=== PATIENT | female | born 1940 | race Caucasian/White ===

== ENCOUNTER 2017-03-24 10:33 | Observation (INO) ==
[2017-03-24] MEDS ORDERED: Aspirin 81 MG TAB.CHEW PO ONE (10:44)
--- NOTE | 2017-03-24 10:49 | Emergency Department Note ---
Disposition Clinical Impression: Chest pain Qualifiers: Chest pain type: precordial pain Qualified Code(s): R07.2 - Precordial pain Disposition: Admitted As Inpatient Chest Pain HPI - General Stated Complaint: CP Time Seen by Provider: 03/24/17 10:44 Source: patient Mode of arrival: ambulatory Limitations: no limitations Vital Signs Reviewed: Yes Nursing Notes Reviewed: Yes - History of Present Illness HPI Narrative: 76-year-old who presents merge department complaining of some chest pain ( anterior left shoulder) and bandlike pain in her left arm. Patient has no recent history of cardiac workup and has no history of heart attack. Pt complaint: chest pain Onset (ago): Just [employer] Duration: intermittent Onset: during rest Pain Location: substernal, left chest Severity: moderate Quality: tightness, aching Improves with: nothing Worsens with: nothing Associated symptoms: Denies: diaphoresis, dyspnea Treatments prior to arrival chest pain: none - Related Data Home Medications Medication Instructions Recorded Confirmed Atorvastatin [Lipitor] 10 mg PO HS 03/24/17 03/24/17 Calcium Carbonate/Vitamin D3 1 tab PO DAILY 03/24/17 03/24/17 [Calcium 500 + Vit D 200 Caplet] Cranberry 500 mg PO DAILY 03/24/17 03/24/17 FLUoxetine HCl [PROzac] 20 mg PO DAILY 03/24/17 03/24/17 HYDROcodone/Acet 5/325 mg [[place] 1 tab PO Q6H PRN 03/24/17 03/24/17 5-325 mg] L. Acidophilus/Pectin, [place] 1 cap PO DAILY 03/24/17 03/24/17 [Acidophilus Probiotic Capsule] Lansoprazole [Prevacid] 30 mg PO DAILY 03/24/17 03/24/17 Loratadine [Allergy Relief] 10 mg PO DAILY 03/24/17 03/24/17 Methylcellulose [Citrucel] 1,000 mg PO 6XD 03/24/17 03/24/17 Vitamin E 100 unit PO DAILY 03/24/17 03/24/17 Allergies Allergy/AdvReac Type Severity Reaction Status Date / Time Penicillins Allergy Rash Verified 03/24/17 10:53 azithromycin AdvReac Nausea Verified 03/24/17 10:53 All systems ED: reviewed and negative except as stated. Constitutional: Denies: fever, chills, weakness, weight change Eyes: Denies: eye pain, eye discharge, vision change ENT ED: Denies: ear pain, throat pain, dental pain, hearing loss, epistaxis, congestion, dysphagia Cardiovascular: Reports: chest pain. Denies: palpitations, dyspnea on exertion , edema, syncope Respiratory: Denies: cough, dyspnea, wheezes, hemoptysis, stridor Gastrointestinal: Denies: abdominal pain, nausea, vomiting, diarrhea, constipation, hematemesis, melena, hematochezia Genitourinary: Denies: dysuria, frequency, hematuria, discharge Musculoskeletal: Denies: back pain, neck pain, arthralgia, myalgia Integumentary: Denies: rash, abrasion, lesions Neurological: Denies: headache, weakness, numbness, paresthesias, confusion, abnormal gait, vertigo Psychiatric: Denies: anxiety, depression, suicidal thoughts, homicidal thoughts , auditory hallucinations, visual hallucinations Endocrine: Denies: fatigue Hematological/Lymphatic: Denies: easy bleeding, easy bruising Allergic/Immunologic: Denies: facial swelling, urticaria Physical Exam - General Limitations: no limitations General appearance: alert, in no apparent distress - Head Head exam: atraumatic, normocephalic, normal inspection - Eye Eye exam: Present: normal appearance, PERRL, EOMI - ENT ENT exam: normal exam, normal oropharynx, mucous membranes moist - Neck Neck exam: Present: normal inspection, full ROM, trachea midline - Chest Chest inspection: Present: normal inspection, symmetric chest wall rise - Respiratory Respiratory exam: Present: normal lung sounds bilaterally - Cardiovascular Cardiovascular exam: Present: regular rate, normal rhythm, normal heart sounds - Abdominal Exam Abdominal exam: Present: soft, Non-Tender. Absent: tenderness, distention, guarding, rebound, rigidity - Extremities Exam Extremities exam: Present: normal inspection, full ROM. Absent: tenderness, pedal edema - Expanded Lower Extremity Exam Hip/Pelvis exam: Present: normal inspection, full ROM Neurovascular/Tendon exam: Absent: motor deficit, sensory deficit, tendon deficit Gait: not tested/not observed - Back Exam Back exam: Present: normal inspection, full ROM. Absent: tenderness - Neurological Exam Neurological exam: Present: alert, oriented X3 - Psychiatric Psychiatric exam: Present: normal affect, normal mood - Skin Skin exam: Present: warm, dry, intact, normal color Course - Reevaluation(s) Reevaluation #1: Currently pain free Time: 12:03 Reevaluation #2: 76-year-old without a significant cardiac history comes in complaining of chest pain. Time: 12:03 Vital Signs Temperature 97.6 F 03/24/17 10:47 Pulse Rate 81 03/24/17 10:47 Respiratory Rate 16 03/24/17 10:47 Blood Pressure 139/83 03/24/17 10:47 O2 Sat by Pulse Oximetry 97 03/24/17 10:47 Temperature 97.9 F 03/24/17 14:08 Pulse Rate 68 03/24/17 14:08 Respiratory Rate 20 03/24/17 14:08 Blood Pressure 136/73 03/24/17 14:08 O2 Sat by Pulse Oximetry 99 03/24/17 14:08 Oxygen Delivery Oxygen Delivery Room Air Chest Pain - Lab Data Lab results reviewed: Yes I reviewed the patient's lab results. Result diagrams: 03/24/17 10:55 03/24/17 10:55 Lab Results 03/24/17 03/24/17 03/24/17 Range/Units 10:55 10:55 10:55 WBC 4.1 L (4.3-11.1) K/mcL RBC 4.68 (3.82-4.97) M/mcL Hgb 13.4 (11.5-15.4) g/dL Hct 41.5 (35.3-44.9) % MCV 88.7 (83.0-100.0) fL MCH 28.6 (28.0-33.3) pg MCHC 32.3 (31.6-35.5) g/dL RDW 13.7 (11.5-14.5) % Plt Count 337 (140-400) K/mcL MPV 8.7 L (9.4-12.4) fL Immature Gran % 0.5 (0-4) % Seg Neutrophils % 61.8 % Lymphocytes % 23.8 % Monocytes % 9.5 % Eosinophils % 2.9 % Basophils % 1.5 % Neutrophils # 2.5 (1.6-8.9) K/mcL Lymphocytes # 1.0 (0.6-4.6) K/mcL Monocytes # 0.4 (0.0-1.3) K/mcL Eosinophils # 0.1 (0.0-0.6) K/mcL Basophils # 0.1 (0.0-0.2) K/mcL PT 10.5 (9.4-12.1) Seconds INR 1.0 APTT 30.7 (26.0-36.0) Seconds Sodium (136-145) mEq/L Potassium (3.5-4.5) mEq/L Chloride (98-109) mEq/L Carbon Dioxide (19-29) mEq/L BUN (7-20) mg/dL Creatinine (0.57-1.11) mg/dL Est GFR ( Amer) (> 60) Est GFR (Non-Af Amer) (> 60) BUN/Creatinine Ratio (6-26) Glucose (70-99) mg/dL Calculated Osmolality (280-300) Calcium (8.6-10.8) mg/dL Troponin I (0-0.03) ng/mL B-Natriuretic Peptide 27 (0-100) pg/mL 03/24/17 03/24/17 Range/Units 10:55 10:55 WBC (4.3-11.1) K/mcL RBC (3.82-4.97) M/mcL Hgb (11.5-15.4) g/dL Hct (35.3-44.9) % MCV (83.0-100.0) fL MCH (28.0-33.3) pg MCHC (31.6-35.5) g/dL RDW (11.5-14.5) % Plt Count (140-400) K/mcL MPV (9.4-12.4) fL Immature Gran % (0-4) % Seg Neutrophils % % Lymphocytes % % Monocytes % % Eosinophils % % Basophils % % Neutrophils # (1.6-8.9) K/mcL Lymphocytes # (0.6-4.6) K/mcL Monocytes # (0.0-1.3) K/mcL Eosinophils # (0.0-0.6) K/mcL Basophils # (0.0-0.2) K/mcL PT (9.4-12.1) Seconds INR APTT (26.0-36.0) Seconds Sodium 138 (136-145) mEq/L Potassium 4.1 (3.5-4.5) mEq/L Chloride 105 (98-109) mEq/L Carbon Dioxide 24 (19-29) mEq/L BUN 15 (7-20) mg/dL Creatinine 0.75 (0.57-1.11) mg/dL Est GFR ( Amer) > 60 (> 60) Est GFR (Non-Af Amer) > 60 (> 60) BUN/Creatinine Ratio 20 (6-26) Glucose 96 (70-99) mg/dL Calculated Osmolality 287 (280-300) Calcium 9.4 (8.6-10.8) mg/dL Troponin I 0.00 (0-0.03) ng/mL B-Natriuretic Peptide (0-100) pg/mL - Radiology Data Radiology results reviewed: Yes I reviewed the patient's radiology results. Chest X-Ray 03/24/17 10:45 IMPRESSION: No evidence for acute cardiopulmonary process. Retrocardiac opacity felt to correlate with hiatal hernia noted on prior remote CT abdomen 09/10/2006. D/ / 03/24/2017 11:02:27 Hesham Flores MD / [facility] Interpreting Provider: Hesham Flores MD - EKG Data EKG attestation: Yes I reviewed and interpreted this EKG. EKG shows normal: sinus rhythm Rate: normal Rhythm: NSR Interpretation: nonspecific ST-T wave changes
[2017-03-24 11:06] LABS: Basophils # 0.1 K/mcL (0.0-0.2); Basophils % 1.5 %; Eosinophils # 0.1 K/mcL (0.0-0.6); Eosinophils % 2.9 %; Hematocrit 41.5 % (35.3-44.9); Hemoglobin 13.4 g/dL (11.5-15.4); Immature Granulocytes % 0.5 % (0-4); Lymphocytes % 23.8 %; Mean Corpuscular HGB Conc 32.3 g/dL (31.6-35.5); Mean Corpuscular Hemoglobin 28.6 pg (28.0-33.3); Mean Corpuscular Volume 88.7 fL (83.0-100.0); Mean Platelet Volume 8.7 fL (9.4-12.4); Monocytes # 0.4 K/mcL (0.0-1.3); Monocytes % 9.5 %; Neutrophils # 2.5 K/mcL (1.6-8.9); Platelet Count 337 K/mcL (140-400); Red Blood Count 4.68 M/mcL (3.82-4.97); Red Cell Distribution Width 13.7 % (11.5-14.5); Segmented Neutrophils % 61.8 %
[2017-03-24 11:15] LABS: Prothrombin Time 10.5 Seconds (9.4-12.1)
[2017-03-24 11:18] LABS: Activated Partial Thrombo Time 30.7 Seconds (26.0-36.0); BUN/Creatinine Ratio 20 (6-26); Blood Urea Nitrogen 15 mg/dL (7-20); Calcium 9.4 mg/dL (8.6-10.8); Carbon Dioxide 24 mEq/L (19-29); Chloride 105 mEq/L (98-109); Glucose 96 mg/dL (70-99); Osmolality,Calculated 287 (280-300); Potassium 4.1 mEq/L (3.5-4.5); Sodium 138 mEq/L (136-145); eGFR For African Americans > 60 (> 60); eGFR For Non-African Americans > 60 (> 60)
[2017-03-24] MEDS ORDERED: Naloxone 0.4 MG/ML INJ IVP PRN (12:30)
[2017-03-24] MEDS ORDERED: *HR* Morphine 2 MG/ML SYRINGE IVP PRN (12:30)
[2017-03-24] MEDS ORDERED: Ondansetron 4 MG/2 ML VIAL IVP PRN (12:30)
[2017-03-24] MEDS ORDERED: Acetaminophen 325 MG TABLET PO PRN (12:30)
--- NOTE | 2017-03-24 12:37 | Internal Med History&Physical ---
Date of Encounter: 03/24/17 Time of Encounter: 12:35 Assessment and Plan (1) Chest pain Current visit: Yes Status: Acute Unclear etiology Continue aspirin, Lipitor, check lipid panel in the morning, follow troponins, continue telemetry Order a stress test and echocardiogram, consider urology consult if abnormal Patient will be admitted for observation. Full code. Time spent on this admission 40 minutes Omeprazole for GI prophylaxis and Lovenox for DVT prophylaxis Qualifiers: Chest pain type: precordial pain Qualified Code(s): R07.2 - Precordial pain (2) Left arm numbness Current visit: Yes Status: Acute Minimal weakness in the left upper shoulder/arm Order a CT scan of the head and may order an MRI of the brain, consider further workup in neurology consult if positive findings (3) Hyperlipidemia Current visit: Yes Status: Acute Start Lipitor Qualifiers: Hyperlipidemia type: pure hypercholesterolemia Qualified Code(s): E78.00 - Pure hypercholesterolemia, unspecified; E78.0 - Pure hypercholesterolemia (4) GERD (gastroesophageal reflux disease) Current visit: Yes Status: Acute Continue omeprazole Needs to follow up as an outpatient Qualifiers: Esophagitis presence: without esophagitis Qualified Code(s): K21.9 - Gastro -esophageal reflux disease without esophagitis (5) Leukopenia Current visit: Yes Status: Acute Likely chronic Qualifiers: Leukopenia type: unspecified Qualified Code(s): D72.819 - Decreased white blood cell count, unspecified Internal Medicine - H&P: HPI Chief complaint: Chest pain Admitted From: Emergency Dept History of present illness: Ms. West is a 76 year old female with a past medical history of gastritis, depression, hyperlipidemia. Comes emergency room complaining of 2 weeks of progressive left arm discomfort, she has been having numbness and a sensation of pins and needles, mild weakness. Yesterday she started complaining of chest pain that radiated to the left side of her neck, dull, pressure-like that started at 9 AM again today 4 out of 10 in intensity that has not improved. Not related to movement. Chest x-ray shows no acute abnormalities and just a retrocardiac opacity compatible with history of hiatal hernia. White blood cell count is 4.1, no fevers or signs of infections. EKG shows ST segment flattening especially inferior leads and lateral leads with no acute changes. Past Med Surg Social Fam HX - Past Medical History Medical history: hyperlipidemia, other (Osteoarthritis, GERD, gastritis, depression) Psychiatric history: no psych history - Past Surgical History Surgical History: other (4 hip replacements, hysterectomy, appendectomy, eye surgeries) - Social History Smoking Status: Never smoker Smokeless Tobacco Status: No Alcohol use: none Drug use: none - Additional Family History Additional family history: Father with colon cancer and mother with emphysema Internal Medicine - H&P: Meds Allergies Penicillins Allergy (Verified 03/24/17 10:53) Rash azithromycin Adverse Reaction (Verified 03/24/17 10:53) Nausea All Systems PM: A 10-system review of systems was performed and is negative for pertinent findings except as documented above in the HPI. Review of systems: Continues to have chest pain. Other systems out of the 10 reviewed were negative. - Constitutional Vitals: Temp Pulse Resp BP Pulse Ox 97.6 F 73 18 132/78 96 03/24/17 10:47 03/24/17 11:48 03/24/17 11:48 03/24/17 11:48 03/24/17 11:48 General appearance: Present: A&O X 3 - Head Head exam: Present: atraumatic, normocephalic - Eye Eye exam: Present: PERRL, conjuntiva pink, sclera anicteric Pupils: Present: PERRL - Neck Neck exam general surgery: Present: supple, trachea midline. Absent: lymphadenopathy - Respiratory Respiratory exam: Present: CTAB. Absent: accessory muscle use, rales, rhonchi, wheezes - Cardiovascular Cardiovascular exam: Present: RRR, +S1, +S2. Absent: diastolic murmur, gallop, rubs, systolic murmur - GI/Abdominal GI/Abdominal exam: Present: normal bowel sounds, soft, no peritoneal signs. Absent: distended, tenderness - Extremities Exam Extremities exam: Present: warm, radial pulses palpable and symetrical. Absent : calf tenderness, cyanotic, pedal edema - Neurological Exam Neurological exam: Present: CN II-XII intact, oriented X3, no focal deficits. Absent: pronater drift, facial droop, speech deficit - Skin Skin exam: Present: dry, intact Internal Med - H&P Results - Labs CBC & Chem 7: 03/24/17 10:55 03/24/17 10:55 Labs: Short CBC 03/24/17 Range/Units 10:55 WBC 4.1 L (4.3-11.1) K/mcL Hgb 13.4 (11.5-15.4) g/dL Hct 41.5 (35.3-44.9) % Plt Count 337 (140-400) K/mcL Neutrophils # 2.5 (1.6-8.9) K/mcL BMP 03/24/17 10:55 Sodium 138 Potassium 4.1 Chloride 105 Carbon Dioxide 24 BUN 15 Creatinine 0.75 Glucose 96 Calcium 9.4 Cardiac Enzymes 03/24/17 Range/Units 10:55 Troponin I 0.00 (0-0.03) ng/mL - Impressions ITS Impressions Chest X-Ray 03/24/17 10:45 IMPRESSION: No evidence for acute cardiopulmonary process. Retrocardiac opacity felt to correlate with hiatal hernia noted on prior remote CT abdomen 09/10/2006. D/ / 03/24/2017 11:02:27 Hesham Flores MD [facility] Interpreting Provider: Hesham Flores MD
[2017-03-24] MEDS: 0.9 % Sodium Chloride 1,000 ML IVC SCH (14:21)
--- NOTE | 2017-03-24 17:36 | Electrocardiograph Report ---
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
[2017-03-25] MEDS: 0.9 % Sodium Chloride 1,000 ML IVC SCH (05:36)
[2017-03-25 05:49] LABS: BUN/Creatinine Ratio 20 (6-26); Blood Urea Nitrogen 17 mg/dL (7-20); Calcium 9.2 mg/dL (8.6-10.8); Carbon Dioxide 25 mEq/L (19-29); Chloride 107 mEq/L (98-109); Chol/HDL Ratio 3.2 (0-4.9); Cholesterol 221 mg/dL (< 200); Glucose 90 mg/dL (70-99); HDL Cholesterol 69 mg/dL (40-59); LDL Cholesterol,Calculated 125 mg/dL (0-99); Osmolality,Calculated 291 (280-300); Sodium 140 mEq/L (136-145); Triglycerides 136 mg/dL (< 150); eGFR For African Americans > 60 (> 60); eGFR For Non-African Americans > 60 (> 60)
[2017-03-25] MEDS ORDERED: *HR* Enoxaparin 40 MG/0.4 ML SYRINGE SQ SCH (06:00)
[2017-03-25 06:45] VITALS: BP 135/62
--- NOTE | 2017-03-25 12:28 | Nuclear Medicine Stress Report ---
Exercise Nuclear Stress Name: Siobhan West Date of Study: 03/25/2017 Date: 1940 Ht: 60.0 in Medical Record#: [id number] Age: 76 Wt: 156.0 lb Gender: Female Order #: [id number] Location: [facility] Room: [facility] Supervising Provider: Aurora Gonsalez CNP Reading Physician: Roberta Read DO Ordering Physician: Elizabeth Juarez MD Primary Care Physician: Cheryl Aguilar DO Stress Technologist: Stone Hung CRT Rn Cardiac Rehab: Ras Garza Indications: Chest Pain Impression: Perfusion imaging was negative for ischemia or infarct. Exercise ECG was non-diagnostic for ischemia. Exercise capacity was poor. Patient had no chest pain with stress. Gated EF = >70%. History: Hypercholesteremia Stress Test Summary: Stress Test Type: Treadmill Protocol: James Baseline Information: Initial Heart Rate: 83 Blood Pressure: 134/78 Stress Information: Stress Time: 3 min 26 sec Test Terminated Due to (primary): Dyspnea Maximum Blood Pressure: 168/80 Maximum Heart Rate: 142 Percent Maximum Heart Rate Achieved: 98 Double Product: [id number] METS Reached: 4.6 Symptoms: Shortness of breath Nuclear Summary: SPECT myocardial perfusion imaging using Tc99m Sestamibi given intravenously was performed at rest and following cardiac stress testing. The resting images were obtained following initial dose of 11.5 mCi. Following stress an additional dose of 34.7 mCi was given at peak exercise or 30 seconds post regadenoson infusion. Medication Given: Time Medication Dose Units Route Findings: Stress Note * Resting ECG demonstrated normal sinus rhythm with nonspecific ST abnormalities. * Exercise ECG is non diagnostic for ischemia due to non-specific ST and T wave changes. * No arrhythmias were noted during stress. * Patient had no chest pain during stress. Patient complained of SOB. * The exercise capacity was poor. Hemodynamic responses * Normal hemodynamic responses to exercise. Study Quality * Study quality is good. Gated EF > 70% * Gated EF > 70%. Left Ventricle * The left ventricle is not dilated. NORMALS * Normal wall motion. * Normal segmental perfusion in stress. * Normal Segmental Perfusion in rest. TID * No evidence of transient ischemic dilatation. Lung Uptake * There is no evidence of increase lung uptake. Updated by Roberta Read on 03/25/2017 12:22:44 PM electronically signed on 03/25/2017 12:23:10 PM with status of Final
--- NOTE | 2017-03-25 14:20 | ECHO - Doppler Report ---
Echocardiogram Name: Siobhan West Date of Study: 03/25/2017 Date: 1940 Ht: 60.0 in Medical Record#: [id number] Age: 76 Wt: 136.0 lb Gender: Female BSA: 1.58 Order #: [id number] Location: [facility] Room #: [facility] Reading Physician: Roberta Read DO Coat Fitter: Kaleigh Tapia RVT, [facility] Ordering Physician: Jan Slater MD Primary Physician: Cheryl Aguilar DO Indications: Chest pain Impressions: LVEF 60%. Normal left ventricular size and systolic function. There is evidence of mild diastolic dysfunction of the left ventricle. Normal right ventricular size and function. No significant valvular dysfunction. No pulmonary hypertension. Left Ventricular Wall Motion: Rest Echo Findings All wall segments showed normal motion. Findings: Study Quality * Technically adequate exam. ECG Findings * Normal sinus rhythm. Left Ventricle * LVEF 60%. * Basal sigmoid septum. No LVOTO. * Mild left ventricular diastolic dysfunction. Aorta * Normally sized aortic root. Left Atrium * Normal left atrial size. Aortic Valve * No aortic regurgitation. * Trileaflet aortic valve. * Normal aortic valve structure. * No aortic stenosis. Mitral Valve * No mitral stenosis. * Mild mitral annular calcification * Trace mitral regurgitation. Tricuspid Valve * Normal tricuspid valve structure. * Trace tricuspid regurgitation. * Estimated RA pressure is 3 mmHg. * Estimated RVSP is 23 mmHg. * No pulmonary hypertension. Pulmonic Valve * Pulmonic valve is not well visualized. * No pulmonic stenosis. * No pulmonic regurgitation. Pulmonary Artery * Pulmonary artery not well visualized. Right Atrium * Normal right atrial size. Right Ventricle * Normal right ventricular structure and function. Interatrial Septum * No evidence of PFO by color Doppler. Pericardium * There is no pericardial effusion present. IVC * Normal IVC dimensions and inspiratory collapse. History Hypercholesteremia Measurements: BP: 135/ 62 2D Normal Values RVIDd: 2.90 cm <2.7 cm IVSd: 1.00 cm 0.6 - 1.0 cm LVIDd: 3.50 cm 3.7 - 5.6 cm LVPWd: 1.10 cm 0.6 - 1.1 cm LVIDs: 2.00 cm 1.5 - 3.6 cm AO: 2.60 cm < 4.0 cm LA: 2.70 cm 2.0 - 4.0cm %FS: 42.90 cm >25 % LA volume: 40 Mitral Valve Dec Time:225.00 msec Peak E:.46 m/sec Peak A:.75 m/sec E/A Ratio:0.6 Peak E' Lat Dl:8.29 cm/s Peak E' Med Dl:6.53 cm/s E/E' Lat Ratio:5.5 E/E' Med Ratio:7 Tricuspid Valve TV Regurg Peak Grad: 20.00mmHg TV Regurg Peak Dl: 2.25m/sec Updated by Roberta Read on 03/25/2017 2:13:17 PM electronically signed on 03/25/2017 2:14:04 PM with status of Final Wall Motion [place]: 1=Normal, 2=Hypokinesis, 3=Akinesis, 4=Dyskinesis, 5=Aneurysmal, 6=Hyperkinetic, X=Not Visualized (Blank)=Missing
--- NOTE | 2017-03-25 15:37 | Discharge Summary ---
Date of Encounter: 03/25/17 Time of Encounter: 15:33 - Discharge Diagnosis (1) Chest pain Priority: Primary Status: Acute Qualifiers: Chest pain type: precordial pain Qualified Code(s): R07.2 - Precordial pain (2) Left arm numbness Priority: Secondary Status: Acute (3) Hyperlipidemia Priority: Secondary Status: Acute Qualifiers: Hyperlipidemia type: pure hypercholesterolemia Qualified Code(s): E78.00 - Pure hypercholesterolemia, unspecified; E78.0 - Pure hypercholesterolemia (4) GERD (gastroesophageal reflux disease) Priority: Secondary Status: Acute Qualifiers: Esophagitis presence: without esophagitis Qualified Code(s): K21.9 - Gastro -esophageal reflux disease without esophagitis - Discharge Medications Prescriptions: Atorvastatin Calcium [Lipitor] 20 mg PO QPM #30 tablet Home Medications: Calcium Carbonate/Vitamin D3 [Calcium 500-Vit D3 200 Caplet] 1 tab PO DAILY [History] Cranberry 500 mg PO DAILY 03/24/17 [History] FLUoxetine HCl [Prozac] 20 mg PO DAILY 03/24/17 [History] HYDROcodone/Acet 5/325 mg [[place] 5-325 mg] 1 tab PO Q6H PRN 03/24/17 [History] L. Acidophilus/Pectin, [place] [Acidophilus Probiotic Capsule] 1 cap PO DAILY [History] Lansoprazole [Prevacid] 30 mg PO DAILY 03/24/17 [History] Loratadine [Allergy Relief] 10 mg PO DAILY 03/24/17 [History] Methylcellulose [Citrucel] 1,000 mg PO 6XD 03/24/17 [History] Vitamin E 100 unit PO DAILY 03/24/17 [History] Atorvastatin Calcium [Lipitor] 20 mg PO QPM #30 tablet 03/25/17 [Rx] Allergies/Adverse Reactions: Allergies Penicillins Allergy (Verified 03/24/17 10:53) Rash azithromycin Adverse Reaction (Verified 03/24/17 10:53) Nausea Date of admission: 03/24/17 13:15 Primary care physician: Randell Armando - Patient Status Disposition: Home, Self-Care Condition: Good Functional capacity at discharge: independent ambulation Overall status at discharge: patient is back to baseline (yes) - Discharge Instructions Follow Up With: Cheryl Aguilar DO [Primary Care Provider] - Forms: ED Satisfaction Letter - Diet and Activity Activity: increase activity as tolerated Diet: low fat, low cholesterol, low salt diet Hospital course: Hospital presentation:Ms. West is a 76 year old female with a past medical history of gastritis, depression, hyperlipidemia. Comes emergency room complaining of 2 weeks of progressive left arm discomfort, she has been having numbness and a sensation of pins and needles, mild weakness. Yesterday she started complaining of chest pain that radiated to the left side of her neck, dull, pressure-like that started at 9 AM again today 4 out of 10 in intensity that has not improved. Not related to movement. Chest x-ray shows no acute abnormalities and just a retrocardiac opacity compatible with history of hiatal hernia. White blood cell count is 4.1, no fevers or signs of infections. EKG shows ST segment flattening especially inferior leads and lateral leads with no acute changes. Hospital course: The patient was placed in observation. Serial troponins were negative. Echocardiogram showed normal eject mild diastolic dysfunction. Stress test was negative for ischemia. The patient's chest pain had resolved. her left arm pain has resolved. This is likely related to osteoarthritis. This should be followed up with her primary care physician. Her cholesterol was elevated and so the Lipitor will be increased to 20 mg daily. She is medically stable for discharge home. she was instructed to follow-up with her primary care physician in one to 2 Weeks. - Time Spent with Patient Total time spent providing and/or coordinating discharge services: - Constitutional Vitals: Temp Pulse Resp BP Pulse Ox 97.8 F 75 16 135/62 95 03/25/17 06:42 03/25/17 06:42 03/25/17 06:42 03/25/17 06:42 03/25/17 06:42 General appearance: Present: A&O X 3 - Respiratory Respiratory exam: Present: CTAB. Absent: accessory muscle use, rales, rhonchi, wheezes - Cardiovascular Cardiovascular exam: Present: RRR, +S1, +S2. Absent: diastolic murmur, gallop, rubs, systolic murmur
== END 2017-03-25 16:14 | disposition home or self-care (01) ==
LOC: 3NENU 10:33 → EMEROO 10:33 → SUATTDRO 13:15 → 3NENU 13:55
PROVIDERS: ADMIT Internal Medicine; ATTEND Internal Medicine